=== PATIENT | female | born 1980 | race African-American/Black ===

== ENCOUNTER 2020-03-10 22:14 | Emergency (ER) | payer OTHER ==
[~2020-03-10] VITALS: Ht 160 cm; Wt 75.8 kg
[2020-03-10] MEDS ORDERED: ZYRTEC10 M5 PO (22:29)
[2020-03-10] MEDS ORDERED: NORCO 5-325 TA1 EAC2 PO (22:44)
[2020-03-10 23:17] VITALS: BP 167/87
== END 2020-03-10 23:18 | disposition home or self-care (01) ==
LOC: M.ERS 22:14
DX: T24.112A Burn of first degree of left thigh, initial encounter (principal); X12.XXXA Contact with other hot fluids, initial encounter; Y93.89 Activity, other specified; Y92.89 Other specified places as the place of occurrence of the external cause; Y99.8 Other external cause status

== ENCOUNTER → 2020-03-28 | Outpatient (CLI) | payer OTHER ==
[~2020-03-28] MED LIST: NORCO 5-325 TA1 EAC2 PO; ZYRTEC10 M5 PO
== END ==
LOC: M.WC 03-20 10:00
PROVIDERS: ATTEND Family Medicine
DX: T24.212A Burn of second degree of left thigh, initial encounter (principal); X12.XXXA Contact with other hot fluids, initial encounter; Y93.89 Activity, other specified; Y92.89 Other specified places as the place of occurrence of the external cause; Y99.8 Other external cause status

== ENCOUNTER 2020-11-15 20:01 | Observation (INO) | payer OTHER ==
[~2020-11-15] VITALS: Ht 160 cm; Wt 72.6 kg
[2020-11-15 20:06] VITALS: BP 178/100
[2020-11-15] MEDS ORDERED: SUPER THERAVIT1 EACH PO (20:11)
[2020-11-15] MEDS ORDERED: VITAMIN B-121000 MC2 PO (20:11)
[2020-11-15 21:07] LABS: ABSOLUTE BASOPHILS 0.1 thou/uL (0.0-0.2); ABSOLUTE LYMPHOCYTES 1.7 thou/uL (0.8-5.3); ABSOLUTE MONOCYTES 0.8 thou/uL (0.0-1.2); ABSOLUTE NEUTROPHILS 5.2 thou/uL (1.6-8.1); BASOPHILS 0.8 %; EOSINOPHILS 0.2 %; HEMATOCRIT 41.6 % (37.0-47.0); HEMOGLOBIN 13.9 gm/dL (12.0-15.0); LYMPHOCYTES 21.8 %; MCH 30.4 pg (26.0-34.0); MCHC 33.3 g/dL (28.0-37.0); MCV 91.3 fL (80.0-100.0); MONOCYTES 10.2 %; MPV 8.9 fl. (7.2-11.1); NUCLEATED RBCS 0 /100WBC; PLATELET COUNT* 233 thou/uL (150-400); RBC 4.56 mil/uL (4.20-5.00); WBC 7.8 thou/uL (4.0-11.0)
[2020-11-15 21:12] LABS: CALCIUM 9.1 mg/dL (8.5-10.1); CREATININE 0.7 mg/dL (0.6-1.3); POTASSIUM 3.6 mmol/L (3.5-5.1)
[2020-11-15 21:16] LABS: APTT 25.4 Seconds (25.0-31.3); INR 1.1; PROTIME 11.4 Seconds (9.20-11.50)
[2020-11-15 21:17] LABS: ALBUMIN 4.8 g/dL (3.4-5.0); TOTAL BILIRUBIN 0.6 mg/dL (<0.1-1.0); TOTAL PROTEIN 9.1 g/dL (6.4-8.2)
[2020-11-16 04:56] VITALS: BP 117/78
[2020-11-16 09:00] VITALS: BP 149/95
[2020-11-16 09:20] VITALS: BP 149/95
[2020-11-16 09:55] LABS: HEMATOCRIT 40.2 % (37.0-47.0); HEMOGLOBIN 13.3 gm/dL (12.0-15.0); MCH 30.6 pg (26.0-34.0); MCHC 33.1 g/dL (28.0-37.0); MCV 92.3 fL (80.0-100.0); MPV 9.6 fl. (7.2-11.1); RBC 4.36 mil/uL (4.20-5.00); WBC 6.9 thou/uL (4.0-11.0)
[2020-11-16 10:05] LABS: ALBUMIN 4.3 g/dL (3.4-5.0); ALKALINE PHOSPHATASE 48 U/L (46-116); ANION GAP 11 mmol/L (7-16); BUN 9 mg/dL (7-18); CALCIUM 9.2 mg/dL (8.5-10.1); CHLORIDE 102 mmol/L (98-107); CHOLESTEROL 178 mg/dL (<200); CO2 26 mmol/L (21-32); CREATININE 0.6 mg/dL (0.6-1.3); GLUCOSE 102 mg/dL (70-99); HDL CHOLESTEROL 70 mg/dL (>40); LDL CHOLESTEROL 101 mg/dL (<100); POTASSIUM 3.6 mmol/L (3.5-5.1); SGOT 12 U/L (15-37); SGPT 16 U/L (30-65); SODIUM 139 mmol/L (136-145); TC:HDL 2.5 Ratio (Not establshd); TOTAL BILIRUBIN 0.4 mg/dL (<0.1-1.0); TOTAL PROTEIN 8.3 g/dL (6.4-8.2); TRIGLYCERIDE 35 mg/dL (<150); VLDL 7 mg/dL (<40)
[2020-11-16 10:06] LABS: SERUM ASSESSMENT Clear
[2020-11-16 13:18] VITALS: BP 146/100
[2020-11-16 16:41] VITALS: BP 135/94
--- NOTE | 2020-11-16 18:08 | NUR ---
ASSUMED PT CARE PT TRANSFERRED FROM THE ER, REPORT RECIEVED FROM [facility]. PT IS PLEASANTLY A&OX4.ASSESSMENT REVIEWED AND AGREED. PT VOICES NO CONCERNS AT THIS TIME. PT CURRENTLY DENIES ANY CHEST PRESSURE AT THIS TIME. BP 149/75 DR. ROBBINS GAVE ORDER FOR NORVASC 5MG TO BE GIVEN NOW AND BP NOW 135/94. VEGETARIAN DIET ORDER PUT IN FOR PT. PT TO BE NPO AT MIDNIGHT FOR CARDIAC NUCLEAR TESTING TOMORROW.PT IS UP AD GEOFF. ORDER FOR UA CLEAN CATCH, OBTAINED AND SENT TO LAB.
[2020-11-16 19:14] LABS: URINE BILIRUBIN NEGATIVE (Negative); URINE BLOOD NEGATIVE (Negative); URINE CLARITY CLEAR; URINE COLOR YELLOW; URINE GLUCOSE-RANDOM NEGATIVE (Negative); URINE KETONES NEGATIVE (Negative); URINE LEUKOCYTES NEGATIVE (Negative); URINE NITRITE NEGATIVE (Negative); URINE PROTEIN NEGATIVE (Negative); URINE UROBILINOGEN 0.2 E.U./dl (0.2-1.0)
[2020-11-16 20:00] VITALS: BP 142/82
[2020-11-17 00:09] VITALS: BP 150/105
[2020-11-17 04:00] VITALS: BP 137/93
[2020-11-17 04:05] LABS: GLYCOHEMOGLOBIN (HGB A1C) 5.3 % (4.8-5.6)
[2020-11-17 04:29] LABS: HEMOGLOBIN 13.9 gm/dL (12.0-15.0); MCH 30.3 pg (26.0-34.0); MPV 9.3 fl. (7.2-11.1); RBC 4.57 mil/uL (4.20-5.00); WBC 6.9 thou/uL (4.0-11.0)
[2020-11-17 04:43] LABS: ALBUMIN 4.3 g/dL (3.4-5.0); CALCIUM 9.2 mg/dL (8.5-10.1); CREATININE 0.5 mg/dL (0.6-1.3); POTASSIUM 3.7 mmol/L (3.5-5.1); TOTAL BILIRUBIN 0.7 mg/dL (<0.1-1.0); TOTAL PROTEIN 8.6 g/dL (6.4-8.2)
--- NOTE | 2020-11-17 04:46 | NUR ---
ASSUMED PT CARE AT APPROX 1930. PT IS AWAKE AND ORIENTED X4. PT IS NOT IN DISTRESS, NO DESATURATIONS NOTED ON ROOM AIR. PT DENIES CHEST PAIN/DISCOMFORT. PT IS NPO AFTER MIDNIGHT FOR CARDIOLOGY. NO ACUTE CHANGES THROUGHOUT THIS SHIFT. CALL LIGHT WITHIN REACH. HOURLY ROUNDING DONE FOR PT SAFETY.
--- NOTE | 2020-11-17 07:20 | NUR ---
CHANGE OF SHIFT BEDSIDE REPORT GIVEN PATIENT SEEN AT BEDSIDE, IN BED ASLEEP ASSUMED APTIENT CARE
[2020-11-17 08:00] VITALS: BP 131/85
[2020-11-17] MEDS ORDERED: HYDROCHLOROTHIA25 M1 PO (09:33)
[2020-11-17] MEDS ORDERED: NORVASC5 MG PO (09:33)
[2020-11-17] MEDS ORDERED: PEPCID20 MG PO (13:56)
--- NOTE | 2020-11-17 14:28 | 2DMMODE ---
[place] [address] 2 D/M-MODE ECHOCARDIOGRAM Name: GERTRUDE TEMPLETON Room: [address] Pily Melchor#: [id number] Admission: 11/16/20 Attend Phys: Jason Limon Discharge: Date of : 80 Date of Service: 11/17/20 1427 Report #: [id number] THIS REPORT FOR: cc: SANTIAGO - No family physician/PCP FAM - No family physician/PCP Wilfredo Zarco MD [facility] ~ APPROVED REPORT Study performed: 11/17/2020 10:04:19 EXAM: Comprehensive 2D, Doppler, and color-flow Echocardiogram Patient Location: In-Patient Room #: [facility] Status: routine BSA: 1.76 HR: 67 bpm BP: 137/93 mmHg Rhythm: NSR Other Information Study Quality: Good Indications Chest Pain Hypertension/HDD 2D Dimensions IVSd: 8.63 (7-11mm) LVOT Diam: 20.13 (18-24mm) LVDd: 43.71 mm PWd: 7.21 (7-11mm) Ascending Ao: 29.01 (22-36mm) LVDs: 27.04 (25-40mm) Aortic Root: 27.42 mm Volumes Left Atrial Volume (Systole) LA ESV Index: 21.50 mL/m2 Aortic Valve AoV Peak John.: 1.39 m/s AO Peak Gr.: 7.77 mmHg LVOT Max P.63 mmHg AO Mean Gr.: 4.26 mmHg LVOT Mean P.86 mmHg LVOT Max V: 1.08 m/s AO V2 VTI: 25.63 cm LVOT Mean V: 0.61 m/s LAYLA (VTI): 2.37 cm2 LVOT V1 VTI: 19.08 [place] [address] 2 D/M-MODE ECHOCARDIOGRAM Name: GERTRUDE TEMPLETON Room: [address] Ruiz#: [id number] Admission: 11/16/20 Attend Phys: Jason Limon Discharge: Date of : 80 Date of Service: 11/17/20 1427 Report #: [id number] Mitral Valve E/A Ratio: 1.55 MV Decel. Time: 213.41 ms MV E Max John.: 0.76 m/s MV PHT: 61.89 ms MVA (PHT): 3.55 cm2 TDI E/Lateral E': 4.75 E/Medial E': 9.50 Medial E' John.: 0.08 m/s Lateral E' John.: 0.16 m/s Pulmonary Valve PV Peak John.: 0.93 m/s PV Peak Gr.: 3.43 mmHg Tricuspid Valve RAP Estimate: 5.00 mmHg TR Peak Gr.: 19.29 mmHg RVSP: 24.00 mmHg PA Pressure: 24.00 mmHg Left Ventricle The left ventricle is normal size. There is normal LV segmental wall motion. There is normal left ventricular wall thickness. Left ventricular systolic function is normal. The left ventricular ejection fraction is within the normal range. LVEF is 55-60%. The left ventricular diastolic function is normal. Right Ventricle The right ventricle is normal size. The right ventricular systolic function is normal. Atria The left atrium size is normal. The right atrium size is normal. Aortic Valve The aortic valve is normal in structure. No aortic regurgitation is present. There is no aortic valvular stenosis. Mitral Valve The mitral valve is normal in structure. Trace mitral regurgitation. No evidence of mitral valve stenosis. Tricuspid Valve The tricuspid valve is normal in structure. [place] [address] 2 D/M-MODE ECHOCARDIOGRAM Name: GALICIA GERTRUDE CUTLER Room: [address]#: [id number] Admission: 11/16/20 Attend Phys: Jason Limon Discharge: Date of : 80 Date of Service: 11/17/20 1427 Report #: [id number] regurgitation. No pulmonary hypertension. Pulmonic Valve The pulmonary valve is normal in structure. Trace pulmonic regurgitation. Great Vessels The aortic root is normal in size. IVC is normal in size and collapses >50% with inspiration. Pericardium There is no pericardial effusion. <Conclusion> The left ventricle is normal size. There is normal left ventricular wall thickness. Left ventricular systolic function is normal. The left ventricular ejection fraction is within the normal range. LVEF is 55-60%. The left ventricular diastolic function is normal. The right ventricle is normal size. The left atrium size is normal. The aortic valve is normal in structure. The mitral valve is normal in structure. Trace mitral regurgitation. The tricuspid valve is normal in structure. IVC is normal in size and collapses >50% with inspiration. There is no pericardial effusion. There is normal LV segmental wall motion. <ELECTRONICALLY SIGNED> By: Wilfredo Zarco MD, FACC 11/17/20 1427 1427 1427 Wilfredo Zarco MD, FACC /INF
--- NOTE | 2020-11-17 14:39 | EKG ---
[place] [address] ELECTROCARDIOGRAM REPORT Name: GERTRUDE TEMPLETON Room: [address]R.#: [id number] Admission: 11/16/20 Attend Phys: Jason Limon Discharge: Date of : 80 Date of Service: 11/15/202011 Report #: [id number] THIS REPORT FOR: //name// [facility] ED Test Date: 2020-11-15 Test Time: 20:12:31 Pat Name: GERTRUDE CUTLER Department: Room: [facility] Gender: F Sales Account Leader: [place] : 1980 Requested By: Kassi Steven Order Number: [id number] MD: Wilfredo Zarco Measurements Intervals [place] Rate: 109 P: 38 W[place]: 128 QRS: 61 QRSD: 84 T: 32 QT: 325 QTc: 438 Interpretive Statements Sinus tachycardia No previous ECG available for comparison Electronically Signed On 11-17-2020 14:38:59 CDT by Wilfredo Zarco [email or web address] <ELECTRONICALLY SIGNED> By: Wilfredo Zarco MD, FAC 11/17/20 1438 11 11 Wilfredo Zarco MD, [facility] /EPI
--- NOTE | 2020-11-17 16:11 | CARDNUC ---
[place] [address] CARDIAC NUCLEAR IMAGING REPORT Name: GERTRUDE TEMPLETON Room: [address] Pily Melchor#: [id number] Admission: 11/16/20 Attend Phys: Jason Limon Discharge: Date of : 80 Date of Service: 11/17/20 1611 Report #: [id number] THIS REPORT FOR: cc: FAM - No family physician/PCP FAM - No family physician/PCP Kike Liang MD [facility] ~ APPROVED REPORT Imaging Protocol: Rest Tc-99m/Stress Tc-99m 1 day Study performed: 11/16/2020 12:17:00 Indication: Hypertension urgency, chest pain, dyspnea. Patient Location: In-Patient Room #: 205 Stress Tech: Leila Moore Stress Nurse: Nora Campbell RN NM Tech:DEBORAH Gar Ht: 5 ft 3 in Wt: 160 lbs BSA: 1.76 m2 BMI: 28.33 Medical History Medical History: Angina, Arrhythmia, hypertensive urgency, left arm and left leg pain, tachycardia, fatigue, nausea, palpitations, dizziness, edema, neck lump near thyroid, past smoker, FHX HTN. Medications: NTG, HCTZ, amlodipine. Allergies: ASA, seasonal. Cardiac Risk Factors: FHX of HTN, hypertensive urgency, past smoker, tachycardia, edema, palpitations, dizziness. Previous Cardiac Procedures: None Pretest Chest Pain Characteristics: No chest pain Exercise History: Physically active Physical Disabilities: None noted Meds Held (24 hrs): NTG Resting Data Rest SPECT myocardial perfusion imaging was performed in supine position 30 minutes following the intravenous injection of 12.0 mCi of Tc-99m Sestamibi. Time of rest injection: 09 Date: 11/17/2020 The images were gated to evaluate regional wall motion and calculate left ventricular ejection fraction. Administration Route: [place] [address] CARDIAC NUCLEAR IMAGING REPORT Name: GERTRUDE TEMPLETON Room: [address]#: [id number] Admission: 11/16/20 Attend Phys: Jason Limon Discharge: Date of : 80 Date of Service: 11/17/20 1611 Report #: [id number] Administration Site: Right AC Exercise Stress At peak stress, the patient was injected intravenously with 32.9mCi of Tc-99m Sestamibi. Time of stress injection: 1200 Date: 11/17/2020 Administration Route: IV Administration Site: Right AC Gated Stress SPECT was performed 30 minutes after stress injection. The images were gated to evaluate regional wall motion and calculate left ventricular ejection fraction. Prone imaging was performed. Stress Test Details Stress Test: Exercise stress testing was performed using a Johan protocol. HR Max Heart Rate (APMHR): 180 bpm Resting HR: 90 bpm Target HR (85% APMHR): 153 bpm Max HR Achieved: 200 bpm % of APMHR: 111 Recovery HR: 130 bpm BP Resting BP: 147/108 mmHg Max BP: 212/87 mmHg Recovery BP: 132/101 mmHg ECG Resting ECG: Sinus Rhythm Stress ECG: Sinus Tachycardia ST Change: None Arrhythmia: None Recovery ECG: Sinus Rhythm Recovery ST Change: None Recovery Arrhythmia: None Clinical Reason for Termination: Completed protocol, Maximal effort, target HR achieved. Stress Symptoms: Dyspnea, leg fatigue. Exercise duration: 10 min 27 sec Exercise capacity: 12.52 METs Overall Exercise Capacity for Age: Border Normal to superior The patient tolerated standard Johan protocol exercise without [place] [address] CARDIAC NUCLEAR IMAGING REPORT Name: GERTRUDE TEMPLETON Room: [address]#: [id number] Admission: 11/16/20 Attend Phys: Jason Limon Discharge: Date of : 80 Date of Service: 11/17/20 1611 Report #: [id number] Nurse Comments A 40 year old female inpatient presented for a treadmill nuclear stress test r/t hypertensive urgency. Treadmill tolerated to stage 4. Recovery unremarkable with continued tachycardia, asymptomatic. Patient stated she felt good when escorted via wheelchair to Nuclear Medicine for imaging. Exercise capacity - Borderline normal to superior. Stress ECG Conclusion Baseline twelve-lead EKG shows sinus rhythm without significant ST segment or T wave abnormality. EKGs obtained during and post exercise show sinus rhythm and sinus tachycardia with 0.[address] segment depression in the inferolateral leads. There were no stress-induced arrhythmias. Study Quality Study: Good Artifact: No artifact Study Data At rest, the left ventricular ejection fraction was 68%.. Post stress, the left ventricular ejection was 65%.. TID = 0.72. Perfusion Perfusion images obtained at rest and post exercise stress show uniform uptake of the radioisotope throughout the myocardium. There were no defects to suggest infarct or ischemia. Wall Motion Normal left ventricular wall motion. Nuclear Conclusion ECG Findings: negative for ischemia Clinical Findings: negative for ischemia Nuclear Findings: negative for ischemia Exercise Capacity: normal Left Ventricular Function: normal Risk Study: low Perfusion images show no defect to suggest infarct or ischemia. Left ventricular systolic function appears normal on gated studies. This is a low risk study. <Conclusion> Baseline twelve-lead EKG shows sinus rhythm [place] [address] CARDIAC NUCLEAR IMAGING REPORT Name: GERTRUDE TEMPLETON Room: [address]#: [id number] Admission: 11/16/20 Attend Phys: Jason Limon Discharge: Date of : 80 Date of Service: 11/17/20 1611 Report #: [id number] segment or T wave abnormality. EKGs obtained during and post exercise show sinus rhythm and sinus tachycardia with 0.[address] segment depression in the inferolateral leads. There were no stress-induced arrhythmias. <ELECTRONICALLY SIGNED> By: Kike Liang MD, FACC 11/17/201610 10 10 Kike Liang MD, FACC /INF
[2020-11-17 16:33] VITALS: BP 145/99
--- NOTE | 2020-11-18 08:00 | CON ---
[address] [address] CONSULTATION Name: GERTRUDE TEMPLETON Room: [address] Pily Melchor#: [id number] Admission: 11/16/20 Attend Phys: Amanda Wu Discharge: 11/17/20 Date of : 80 Report #: [id number] THIS REPORT FOR: cc: FAM - No family physician/PCP FAM - No family physician/PCP Cassandra Flower MD [facility] ~ CARDIOLOGY CONSULTATION HISTORY OF PRESENT ILLNESS: I was asked by Dr. Limon to see this 40-year-old -[place] woman because of chest pain in the context of hypertensive crisis. Additionally, she had left arm pain and left leg pain. This lady first became aware of hypertension when she went to an urgent care center last . She went because she had injured her left elbow. Apparently, nothing much was found with her elbow; however, her blood pressure is 172/118. This lady then got a blood pressure cuff and measured blood pressures as high as 160/120 at home and she came to the Emergency Room. After she came to the Emergency Room, she developed chest pain. She is not known to have hypertension in the past. She does not have a history of diabetes or high cholesterol. She does not smoke; however, she smoked in the past. She also has smoked marijuana in the past. She has not used other drugs. She has not had hypercholesterolemia. She has not previously had high blood pressure. There is family history of heart disease in particular coronary heart disease. There is not a history of coronary heart disease, but there is a history of high blood pressure and stroke. She has not had renal disease or peripheral vascular disease, or TIAs or CVAs or stroke or claudication or open or nonhealing wounds. She does have some arthritic type pains in her legs. She has no prior heart disease. Her chest pain was substernal and a squeezing or pressure or tightness feeling. It was a 4 on a scale of 10. It lasted for nearly an hour. It did radiate into the left arm and left leg. It was associated with nausea, but no other radiation or associated symptoms. PAST MEDICAL HISTORY: Remarkable for her hives. She gets that from aspirin. PAST SURGICAL HISTORY: She has had a hysterectomy and a . ALLERGIES: SHE IS ALLERGIC TO ASPIRIN. MEDICATIONS: She does not take any medicines. REVIEW OF SYSTEMS: Positive for palpitations, chest discomfort, shortness of breath with exercise, extremity edema, bleeding disorder, SEASONAL ALLERGIES, ASPIRIN ALLERGY and hives. Otherwise, review of systems is negative for some 40 different complaints in 14 different system categories including central nervous system, general, respiratory, cardiovascular, endocrine, gastrointestinal, genitourinary, hematologic, lymphatic, allergic, immunologic, psychiatric, [place] [address] CONSULTATION Name: GERTRUDE TEMPLETON Room: [address] Pily Melchor#: [id number] Admission: 11/16/20 Attend Phys: Amanda Wu Discharge: 11/17/20 Date of : 80 Report #: [id number] musculoskeletal, skin, eyes, ears, nose, mouth, and throat. Please see our review of system form for details and negatives in review of systems. Note; her chest pain did occur at rest. There was associated sweating and it was better with nitroglycerin taken in the ER. PHYSICAL EXAMINATION: GENERAL: She presents as a well-developed, well-nourished -[place] woman in no acute distress. VITAL SIGNS: Her pulse was 70 and regular, blood pressure is 149/95, respirations 18 and regular, temperature is 97.5. HEENT: Her head was atraumatic. Eyes clear. NECK: Supple. There is no jugular venous distention or hepatojugular reflux. Thyroid is not enlarged. There is no adenopathy. SKIN: Warm and dry. Mucous membranes are moist. LUNGS: Clear to auscultation and percussion. HEART: Revealed normal first and second heart sound. There is soft S4. There is no S3. There are no murmurs, rubs, thrills, heaves or gallops. PMI is nondisplaced. ABDOMEN: Soft, flat and nontender. No palpable masses, no organomegaly. EXTREMITIES: Reveal no cyanosis, clubbing or edema. NEUROLOGIC: The patient mentated normally, talked normally, moved all extremities normally. LABORATORY DATA: Troponins were negative x 3. IMAGING STUDIES: Her EKG demonstrates sinus tachycardia, heart rate was 109. Otherwise, there are no significant abnormalities. Chest x-ray was unremarkable. IMPRESSION: 1. Chest pain. 2. Hypertensive crisis. 3. Left arm and left leg pain. RECOMMENDATION: She should have an exercise Cardiolite stress test and an echocardiogram. Thank you very much for asking me to this patient. If there are any questions, please feel free to contact me. <ELECTRONICALLY SIGNED> By: Cassandra Flower MD, [facility] 11/18/20 0800 1211 [id number]. Luiz Flower MD, FACC /nt
== END 2020-11-17 18:00 | disposition home or self-care (01) ==
LOC: M.ERS 20:01 → M.TBA-ER 11-16 01:58 → M.2W 11-16 01:58
PROVIDERS: Personal Emergency Response Attendant; ADMIT Internal Medicine; ATTEND Internal Medicine
DX: I16.1 Hypertensive emergency (principal); Z20.822 Contact with and (suspected) exposure to COVID-19; R07.89 Other chest pain; I21.4 Non-ST elevation (NSTEMI) myocardial infarction; R59.9 Enlarged lymph nodes, unspecified; B37.3 Candidiasis of vulva and vagina; D64.9 Anemia, unspecified; I10 Essential (primary) hypertension; Z79.899 Other long term (current) drug therapy